=== PATIENT | male | born 1995 | race African-American/Black ===

== ENCOUNTER 2016-10-02 10:45 | Emergency (ER) | payer SELFPAY ==
[~2016-10-02] VITALS: Ht 175.3 cm; Wt 72.6 kg
[~2016-10-02 10:45] MED LIST: ACETAMINOPHEN-1 EAC1 ORAL; NKM
[2016-10-02] MEDS ORDERED: Ipratropium 0.02% Inh Soln 2.5ml UD HHN ONE (11:15)
[2016-10-02] MEDS ORDERED: Albuterol ud Inhalation HHN ONE (11:15)
[2016-10-02] MEDS ORDERED: PredniSONE 20mg tab ORAL ONE (11:15)
[2016-10-02] MEDS ORDERED: PROMETHAZINE-C118 M1 ORAL (11:32)
[2016-10-02] MEDS ORDERED: AZITHROMYCIN250 MG ORAL (11:32)
[2016-10-02] MEDS ORDERED: ALBUTEROL SULF8.5 GM INH (11:32)
[2016-10-02] MEDS ORDERED: PREDNISONE20 MG ORAL (11:32)
[2016-10-02 11:43] VITALS: BP 103/59
--- NOTE | 2016-10-02 11:55 | Emergency Room Report ---
History of Present Illness General Chief Complaint: Upper Respiratory Illness Source: Patient Present Illness HPI 20-year-old male presents to ED complaining of cough x1 month. States cough is dry, sometimes productive. However cough has persisted for one month. Notes occasional bodyaches and chills. Denies fever. Denies shortness of breath. Notes history of asthma. Denies smoking. Denies sick contacts or recent travel. No other aggravating or relieving factors. Denies any other associated symptoms Allergies: Coded Allergies: No Known Allergies (Unverified , 01/30/13) Patient History Past Medical History: asthma Past Surgical History: none Pertinent Family History: none Social History: Denies: alcohol use, drug use, smoking Immunizations: UTD Reviewed Nursing Documentation: PMH: Agreed, PSxH: Agreed Nursing Documentation-PMH Past Medical History: No History, Except For Hx Asthma: Yes Review of Systems All Other Systems: negative except mentioned in HPI Physical Exam Vital Signs Date Time Temp Pulse Resp B/P Pulse Ox O2 Delivery O2 Flow Rate FiO2 10/02/16 10:55 99.7 86 14 91/49 97 Room Air 10/02/16 11:20 21 Sp02 EP Interpretation: reviewed, normal General Appearance: no apparent distress, alert, GCS 15, non-toxic Head: normocephalic, atraumatic Eyes: bilateral eye PERRL, bilateral eye normal inspection ENT: hearing grossly normal, normal pharynx, no angioedema, normal voice Neck: full range of motion, supple/symm/no masses Respiratory: chest non-tender, lungs clear, normal breath sounds, speaking full sentences Cardiovascular #1: regular rate, rhythm, no edema Cardiovascular #2: 2+ carotid (R), 2+ carotid (L), 2+ radial (R), 2+ radial (L) , 2+ dorsalis pedis (R), 2+ dorsalis pedis (L) Gastrointestinal: normal bowel sounds, non tender, soft, non-distended, no guarding, no rebound Rectal: deferred Genitourinary: normal inspection, no CVA tenderness Musculoskeletal: back normal, gait/station normal, normal range of motion, non- tender Neurologic: alert, oriented x3, responsive, motor strength/tone normal, sensory intact, speech normal Psychiatric: judgement/insight normal, memory normal, mood/affect normal, no suicidal/homicidal ideation Reflexes: 3+ bicep (R), 3+ bicep (L), 3+ tricep (R), 3+ tricep (L), 3+ knee (R) , 3+ knee (L) Skin: normal color, no rash, warm/dry, well hydrated Lymphatic: no adenopathy Medical Decision Making Diagnostic Impression: Primary Impression: Atypical pneumonia ER Course Hospital Course 20year-old male presents to ED complaining of cough x1 month Differential diagnoses include: URI, bronchitis, asthma/COPD, pneumonia Clinical course Patient placed on stretcher. After initial history and physical I ordered prednisone and nebulizer treatment. Upon reassessment patient states cough and symptoms have improved. Given the symptoms have persisted for one month we will treat has atypical pneumonia and prescribe antibiotics Diagnosis - atypical pneumonia Stable and discharged home with prescriptions for Rx albuterol, prednisone, cough syrup, zpack. Instructed to followup with PMD. Return to ED if symptoms recur or worsen Last Vital Signs Date Time Temp Pulse Resp B/P Pulse Ox O2 Delivery O2 Flow Rate FiO2 10/02/16 11:43 84 16 103/59 97 Room Air 21 10/02/16 11:41 99.7 Status: improved Disposition: HOME, SELF-CARE Condition: Stable Scripts Azithromycin* (ZITHROMAX*) 250 Mg Tablet 250 MG ORAL DAILY, #6 TAB 0 Refills Take two tablets by mouth today, then take one tablet by mouth daily for four days Prov: SHAILA MASON M.D. 10/02/16 Codeine/Promethazine Hcl* (PROMETHAZINE-CODEINE SYRUP*) 118 Ml Syrup 5 ML ORAL Q6H Y for For Cough, #118 ML 0 Refills Prov: SHAILA MASON M.D. 10/02/16 Prednisone* (PREDNISONE*) 20 Mg Tablet 40 MG ORAL DAILY, #10 TAB Prov: SHAILA MASON M.D. 10/02/16 Albuterol Sulfate* (ALBUTEROL SULFATE MDI*) 8.5 Gm Hfa.aer.ad 2 PUFF INH Q4H Y for cough/wheezing, #1 EA 0 Refills Prov: SHAILA MASON M.D. 10/02/16 Referrals: NOT CHOSEN IPA/,REFERRING (PCP) Patient Instructions: Community-Acquired Pneumonia, Adult, [id number] SHAILA MASON M.D. Oct 02, 2016 11:55
== END 2016-10-02 11:43 | disposition home or self-care (01) ==
LOC: EMR 11:31
DX: J18.9 Pneumonia, unspecified organism (principal); J45.909 Unspecified asthma, uncomplicated
CPT/HCPCS: 94640; 94664; 99284

== ENCOUNTER 2018-05-08 12:33 | Emergency (ER) | payer SELFPAY ==
[~2018-05-08] VITALS: Ht 177.8 cm; Wt 68.0 kg
[~2018-05-08 12:33] MED LIST changes: +ALBUTEROL SULF8.5 GM INH; +AZITHROMYCIN250 MG ORAL; +PREDNISONE20 MG ORAL; +PROMETHAZINE-C118 M1 ORAL
[2018-05-08] MEDS ORDERED: Cephalexin 500mg cap ORAL ONE (13:15)
[2018-05-08] MEDS ORDERED: Lidocaine 1% MPF 10mg/ml 5ml INJ ONE (13:15)
--- NOTE | 2018-05-08 14:00 | Emergency Room Report ---
History of Present Illness General Chief Complaint: Laceration Source: Patient Present Illness [facility] The patient is a 22-year-old male presenting for right facial laceration. He states that he was playing basketball 2 days prior when he ran into another player and expressed pain and bleeding to the right cheek. He did not think he had to seek medical attention at that time. Pain is now a 0 out of 10. He denies any other injury or symptoms. Tetanus UTD Allergies: Coded Allergies: No Known Allergies (Unverified , 01/30/13) Patient History Past Medical History: see triage record Pertinent Family History: none Immunizations: UTD Reviewed Nursing Documentation: PMH: Agreed; PSxH: Agreed Nursing Documentation-PMH Past Medical History: No History, Except For Hx Asthma: Yes Review of Systems All Other Systems: negative except mentioned in HPI Physical Exam Vital Signs Date Time Temp Pulse Resp B/P (MAP) Pulse Ox O2 Delivery O2 Flow Rate FiO2 05/08/18 12:47 98.2 62 14 142/67 99 Room Air 98.2 Sp02 EP Interpretation: reviewed, normal General Appearance: no apparent distress, alert, GCS 15, non-toxic Head: normocephalic, atraumatic Eyes: bilateral eye normal inspection, bilateral eye PERRL Genitourinary: normal inspection, no CVA tenderness Musculoskeletal: back normal, gait/station normal, normal range of motion, non- tender Neurologic: alert, oriented x3, responsive, motor strength/tone normal, sensory intact, speech normal Skin: no rash, well hydrated, normal turgor, laceration - 3cm linear laceration to the R face inferior to zygomatic process Procedures Laceration/Wound Repair Laceration/Wound Repair : Consent: Verbal Wound Location: face Wound's Depth, Shape: superficial, linear Wound Length (cm): 3 Wound Explored: clean Irrigated w/ Saline (ccs): 200 Betadine Prep?: Yes Anesthesia: 1% Lidocaine Volume Anesthetic (ccs): 3 Wound Debrided: minimal Wound Repaired With: sutures Suture Size/Type: 6:0, nylon Number of Sutures: 5 Layer Closure?: No Sterile Dressing Applied?: Yes Splint Applied?: No Sling Applied?: No Patient Tolerated: Well Complications: None Medical Decision Making PA Attestation Dr. Arensa is my supervising physician. Patient management was discussed with my supervising physician Diagnostic Impression: Primary Impression: Facial laceration Qualified Codes: S01.81XA - Laceration without foreign body of other part of head, initial encounter ER Course The patient is a 22-year-old male presenting for right facial laceration. Ddx considered include but not limited to fracture, tendon/ligament injury, avulsion, nerve damage, wound infection, among others PE: NAD 3cm linear laceration to the R face inferior to zygomatic process. Minimally gaping. Due to the laceration being on face and somewhat gaping, the wound will be closed after being copiously irrigated. Risks and benefits discussed with patient. he was advised there is a greater chance of infection with wound closure. The wound was irrigated with normal saline and cleaned with betadine. A 27g needle was used to administer 3mL of lidocaine w.o epi for local anaesthesia. 5 sutures were placed with 6-0 Nylon. The wound was well approximated and the patient tolerated the procedure well. The wound was then cleaned and dressing applied. The patient is discharged home with prescription for antibiotics. He was advised he needs to follow-up with his primary doctor for wound check and suture removal. ER precautions given Last Vital Signs Date Time Temp Pulse Resp B/P (MAP) Pulse Ox O2 Delivery O2 Flow Rate FiO2 05/08/18 12:47 98.2 62 14 142/67 99 Room Air 98.2 Status: improved Disposition: HOME, SELF-CARE Condition: Improved Scripts Cephalexin* (KEFLEX*) 500 Mg Capsule 500 MG ORAL EVERY 12 HOURS, #14 CAP 0 Refills Prov: LIZETTE HENDERSON 05/08/18 LIZETTE HENDERSON May 08, 2018 14:00
[2018-05-08] MEDS ORDERED: CEPHALEXIN500 MG ORAL (14:02)
[2018-05-08 14:08] VITALS: BP 134/69
[2018-05-08 14:09] VITALS: BP 142/67
== END 2018-05-08 14:09 | disposition home or self-care (01) ==
LOC: EMR 14:04
DX: S01.411A Laceration without foreign body of right cheek and temporomandibular area, initial encounter (principal); W51.XXXA Accidental striking against or bumped into by another person, initial encounter; Y93.67 Activity, basketball; Y92.9 Unspecified place or not applicable; J45.909 Unspecified asthma, uncomplicated
CPT/HCPCS: 99283

== ENCOUNTER 2018-05-13 23:19 | Emergency (ER) | payer SELFPAY ==
[~2018-05-13] VITALS: Ht 177.8 cm; Wt 68.0 kg
[~2018-05-13 23:19] MED LIST changes: +CEPHALEXIN500 MG ORAL
--- NOTE | 2018-05-13 23:52 | Emergency Room Report ---
History of Present Illness General Chief Complaint: Wound Recheck/Suture Removal Source: Patient Present Illness HPI Patient here for suture removal. He was sutured 5 days ago. He denies any fevers or chills. Some swelling of the wound. Allergies: Coded Allergies: No Known Allergies (Unverified , 01/30/13) Patient History Past Medical History: see triage record Social History Narrative from home Reviewed Nursing Documentation: PMH: Agreed; PSxH: Agreed Nursing Documentation-PMH Past Medical History: No Stated History Hx Asthma: Yes Review of Systems Constitutional: Reports: see HPI Skin: Reports: see HPI Neurological: Denies: headache Physical Exam Vital Signs Date Time Temp Pulse Resp B/P (MAP) Pulse Ox O2 Delivery O2 Flow Rate FiO2 05/13/18 23:24 99.0 67 16 104/67 97 Room Air 99.0 Sp02 EP Interpretation: reviewed, normal General Appearance: well appearing, no apparent distress Head: normocephalic, atraumatic Eyes: bilateral eye normal inspection, bilateral eye PERRL ENT: hearing grossly normal, normal voice Neck: full range of motion, supple Respiratory: no respiratory distress, speaking full sentences Musculoskeletal: digits/nails normal, gait/station normal Neurologic: alert, normal gait, grossly normal Psychiatric: mood/affect normal Skin: no rash, wd healing/no infection noted Procedures Additional Procedure Procedure Narrative Suture removal with #11 blade. Medical Decision Making Diagnostic Impression: Primary Impression: Encounter for removal of sutures ER Course Patient here for suture removal. The wound appears noninfected. Sutures were removed with a #11 blade. The patient tolerated this well. Patient was given instructions for wound care and scar minimization. Patient stable for outpatient observation and treatment Last Vital Signs Date Time Temp Pulse Resp B/P (MAP) Pulse Ox O2 Delivery O2 Flow Rate FiO2 05/14/18 00:00 99.0 76 16 110/67 97 Room Air 99.0 Status: improved Disposition: HOME, SELF-CARE Condition: Improved Juliocesar Marie M.D. May 13, 2018 23:52
[2018-05-13 23:55] VITALS: BP 110/67
[2018-05-14] VITALS: BP 110/67
[2018-05-14] MEDS ORDERED: Bacitracin Oint UD TOPIC ONE
== END 2018-05-14 | disposition home or self-care (01) ==
LOC: EMR 23:46
DX: Z48.02 Encounter for removal of sutures (principal); J45.909 Unspecified asthma, uncomplicated
CPT/HCPCS: 99282